=== PATIENT | female | born 1985 | race African-American/Black ===

== ENCOUNTER 2017-10-30 20:07 | Emergency (ER) | payer SELFPAY ==
[~2017-10-30] VITALS: Ht 170.2 cm; Wt 82.0 kg
[2017-10-30] MEDS ORDERED: SODIUM CHLORIDE 0.9% 1,000 ML IV ONE (20:29)
[2017-10-30 21:27] LABS: BASOPHILS % 0.5 % (0.0-2.0); EOSINOPHILS % 0.7 % (0.0-5.0); HEMATOCRIT. 38.9 % (36.0-48.0); HEMOGLOBIN. 12.8 g/dL (12.0-16.0); LYMPHOCYTES % 36.4 % (20.0-50.0); MEAN CORPUSCULAR HEMOGLOBIN 27.9 pg (28.0-32.0); MEAN CORPUSCULAR VOLUME 84.7 fL (81.0-99.0); MEAN PLATELET VOLUME 9.7 fl (7.4-10.4); MONOCYTES % 5.9 % (2.0-8.0); NEUTROPHILS % 56.5 % (40.0-76.0); PLATELET 214 x1000/uL (130-400); RED BLOOD CELL COUNT 4.59 mill/uL (4.2-5.4); RED CELL DISTRIBUTION WIDTH 13.2 % (11.6-14.6)
[2017-10-30 21:32] LABS: CHLORIDE 105 mEq/L (98-107)
[2017-10-30 21:37] LABS: ETHANOL BLOOD < 10 mg/dL
[2017-10-30] MEDS ORDERED: POTASSIUM CHLORIDE 20MEQ TABLET SR PO ONE (22:00)
[2017-10-30] MEDS ORDERED: KCL 20MEQ/100ML PREMIX 100 ML IV ONE (22:00)
[2017-10-31 01:10] VITALS: BP 133/67
== END 2017-10-31 01:12 | disposition home or self-care (01) ==
LOC: ER 20:07
DX: T40.7X1A Poisoning by cannabis (derivatives), accidental (unintentional), initial encounter (principal); G93.49 Other encephalopathy; E87.6 Hypokalemia; Y92.89 Other specified places as the place of occurrence of the external cause
CPT/HCPCS: 36415; 80053; 85025; 96360; 96361; 99285; G0482; J3480; J7030; Z7610